=== PATIENT | female | born 1950 ===

== ENCOUNTER 2018-06-06 07:06 | Day surgery (SDC) | payer MEDICAID, MEDICARE ==
[2018-06-06 07:30] VITALS: BMI 23.6
[2018-06-06] MEDS ORDERED: Lactated Ringer's 500 ML IV ONE (09:10)
[2018-06-06] MEDS ORDERED: Propofol 10 mg/ml Inj (20 ML) ONE (09:13)
[2018-06-06 09:17] VITALS: O2SAT 100
[2018-06-06 09:40] VITALS: TEMP 98.5
[2018-06-06 13:40] VITALS: BP 127/56; PULSE 88; RESP 14
== END 2018-06-06 11:10 | disposition home or self-care (01) ==
LOC: C.ENDO 07:06
PROVIDERS: ATTEND Internal Medicine Gastroenterology
DX: K57.90 Diverticulosis of intestine, part unspecified, without perforation or abscess without bleeding (principal); K64.8 Other hemorrhoids
CPT/HCPCS: 45378; 82948; J2704; J7120